=== PATIENT | female | born 1990 | race Caucasian/White ===

== ENCOUNTER 2022-05-09 15:10 | Observation (INO) | payer OTHER ==
[2022-05-08 16:00] VITALS: BP 101/66
[~2022-05-09] VITALS: Ht 167.6 cm; Wt 78.5 kg
[2022-05-09] MEDS ORDERED: LACTATED RINGERS 1,000 ML IV SCH (15:45)
[2022-05-09] MEDS ORDERED: IRON SUCROSE COMPLEX 100 MG/5 ML VIAL IVP SCH ×2 (16:00→16:30)
== END 2022-05-09 17:20 | disposition home or self-care (01) ==
LOC: MLD 15:10
PROVIDERS: ADMIT Obstetrics & Gynecology; ATTEND Obstetrics & Gynecology
DX: O99.013 Anemia complicating pregnancy, third trimester (principal); D50.9 Iron deficiency anemia, unspecified; Z3A.36 36 weeks gestation of pregnancy
CPT/HCPCS: 59025; 87426; 96374; G0378; J1756

== ENCOUNTER 2022-05-29 14:16 | Inpatient (IN) | payer OTHER ==
[~2022-05-29] VITALS: Ht 167.6 cm; Wt 79.8 kg
[2022-05-29] MEDS ORDERED: PNV1TABL5 PO (14:47)
[2022-05-29] MEDS ORDERED: IRON SUCROSE COMPLEX 100 MG/5 ML VIAL IVP SCH (14:50)
[2022-05-29] MEDS: LACTATED RINGERS 1,000 ML IV SCH ×2 (15:20→23:37)
[2022-05-29 15:25] VITALS: BP 107/61
[2022-05-29] MEDS ORDERED: MORPHINE SULFATE 5 MG/ML VIAL IVP PRN (18:00)
[2022-05-29] MEDS ORDERED: METHYLERGONOVINE 0.2 MG/ML AMP IM PRN (18:00)
[2022-05-29] MEDS ORDERED: MISOPROSTOL 25 MCG TAB VG SCH (18:00)
[2022-05-29] MEDS ORDERED: ONDANSETRON 4 MG/2 ML VIAL IVP PRN (18:00)
[2022-05-29] MEDS ORDERED: OXYTOCIN 20 UNITS in LACTATED RINGERS 1,000 ML IV SCH (18:00)
[2022-05-29] MEDS ORDERED: DOCUSATE SODIUM 100 MG GELCAP PO ONE (20:07)
[2022-05-29 20:29] LABS: ALBUMIN 2.2 g/dL (3.4-5.0); ANION GAP 13.1 (8-16); CARBON DIOXIDE 22.8 mmol/L (21-32); CREATININE 0.4 mg/dL (0.6-1.3); POTASSIUM 3.9 mmol/L (3.5-5.1); TOTAL BILIRUBIN 0.2 mg/dL (0.0-1.0)
[2022-05-29] MEDS: DOCUSATE SODIUM 100 MG GELCAP PO SCH (20:29)
[2022-05-29 20:54] LABS: PROTHROMBIN TIME 9.7 secs (10.8-13.4)
[2022-05-29 22:14] LABS: BILIRUBIN,URINE NEGATIVE (NEGATIVE); BLOOD, URINE NEGATIVE (NEGATIVE); COLOR,URINE YELLOW (YELLOW); LEUKOCYTE ESTERASE ,URINE 1+ (NEGATIVE); NITRITE, URINE NEGATIVE (NEGATIVE); UGLUCOSE NEGATIVE (NEGATIVE)
[2022-05-29 22:18] LABS: APPEARANCE,URINE HAZY (CLEAR)
[2022-05-29 22:34] LABS: BASOPHILS % (AUTO) 0.5 % (0.0-2.0); EOSINOPHILS % (AUTO) 0.8 % (0.0-4.0); HEMATOCRIT 25.5 % (36-48); HEMOGLOBIN 7.9 g/dL (12.0-16.0); LYMPHOCYTES % (AUTO) 32.8 % (20.5-51.1); MEAN CORPUSCULAR HEMOGLOBIN 21 pg (27-31); MEAN CORPUSCULAR HGB CONC 31 g/dL (33-37); MEAN CORPUSCULAR VOLUME 67.3 fL (80-94); MONOCYTES # (AUTO) 0.3 K/uL (0.8-1.0); MONOCYTES % (AUTO) 4.9 % (1.7-9.3); NEUTROPHILS # (AUTO) 3.7 K/uL (1.8-7.7); PLATELET COUNT (AUTO) 270 K/uL (140-450); RED BLOOD CELL COUNT(AUTO) 3.79 MIL/uL (4.20-5.40); RED CELL DISTRIBUTION WIDTH 18.8 % (11.6-13.7)
[2022-05-30 01:03] LABS: RBC,URINE 0-5 /HPF (0-5)
[2022-05-30 02:30] VITALS: BP 133/72
[2022-05-30] MEDS ORDERED: MORPHINE SULFATE 10 MG/ML VIAL ONE (03:42)
[2022-05-30 03:48] VITALS: BP 107/67
[2022-05-30] MEDS ORDERED: OXYTOCIN 20 UNITS/LR PREMIX 1,000 ML IV ONE (05:49)
--- NOTE | 2022-05-30 10:31 | NUR ---
PATIENT HAS BEEN SCREENED AND CATEGORIZED LOW NUTRITION RISK. PATIENT WILL BE SEEN WITHIN 7 DAYS OF ADMISSION. 06/05/22 [address]
[2022-05-30] MEDS: IBUPROFEN 800 MG TAB PO PRN ×2 (13:54→22:26)
[2022-05-31] MEDS: DOCUSATE SODIUM 100 MG GELCAP PO SCH (09:07)
[2022-05-31] MEDS: IBUPROFEN 800 MG TAB PO PRN (09:09)
[2022-05-31 09:21] LABS: HEMOGLOBIN 7.7 g/dL (12.0-16.0)
== END 2022-05-31 16:30 | disposition home or self-care (01) | DRG 560 ==
LOC: MLD 14:16 → OBSVTOIN 15:05 → MLD 17:50 → MFCC 05-30 09:39
PROVIDERS: ADMIT Obstetrics & Gynecology; ATTEND Obstetrics & Gynecology
PROC: 10E0XZZ Delivery of Products of Conception, External Approach (ICD-10-PCS; principal; 2022-05-30)
DX: O36.8130 Decreased fetal movements, third trimester, not applicable or unspecified (principal); Z37.0 Single live birth; O36.5930 Maternal care for other known or suspected poor fetal growth, third trimester, not applicable or unspecified; O70.0 First degree perineal laceration during delivery; Z20.822 Contact with and (suspected) exposure to COVID-19; Z3A.39 39 weeks gestation of pregnancy; O90.81 Anemia of the puerperium
CPT/HCPCS: 36415; 59200; 59409; 76805; 76819; 80053; 81001; 85018; 85025; 85610; 85730; 86592; 86886; 86900; 86901; 87086; J1756; J2270; J2405; J2590; J7120; Q0092